=== PATIENT | male | born 2000 | race African-American/Black ===

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

== ENCOUNTER 2019-05-21 01:57 | Emergency (ER) | payer OTHER ==
[~2019-05-21] VITALS: Ht 180.3 cm; Wt 81.7 kg
[2019-05-21] MEDS ORDERED: NAPROXEN500 MG PO (02:39)
[2019-05-21] MEDS ORDERED: ROBAXIN500 MG PO (02:39)
[2019-05-21 02:54] VITALS: BP 119/90
--- NOTE | 2019-05-21 09:46 | EKG ---
[address] [address] ELECTROCARDIOGRAM REPORT Name: ALICIACLAUALEX Room #: [facility]P [facility] [id number] ������������������ Admission: 05/21/19 ������������������ Attend Phys: Discharge: 05/21/19 ������������������ Date of : [birth year] Report #: [id number] ����������������������������������������������������������������� [id number] THIS REPORT FOR: //name// [facility] ED Test Date: 2019-05-21 Test Time: 02:02:29 Pat Name: ALEX ATKINS Department: Room: Gender: Gang Miner: MALCOLM : 2000 Requested By: Mychal Bullock Order Number: [id number] MD: Abraham Wang Measurements Intervals [place] Rate: 64 P: 23 NH: 172 QRS: 2 QRSD: 90 T: 15 QT: 398 QTc: 411 Interpretive Statements Sinus rhythm Early repolarization Compared to ECG 06/04/2013 22:28:14 No significant change was found Electronically Signed On 05-21-2019 9:45:50 CDT by Abraham Wang [email or web address] ��������������������������������������������� <ELECTRONICALLY SIGNED> ���������������������������������������� By: Abraham Wang MD, [facility] ��������������������������������������������� 05/21/19 0945 [id number] Abraham Wang MD, FACC /EPI
== END 2019-05-21 02:54 | disposition home or self-care (01) ==
LOC: ER 01:57
DX: S43.401A Unspecified sprain of right shoulder joint, initial encounter (principal); F90.9 Attention-deficit hyperactivity disorder, unspecified type; X50.9XXA Other and unspecified overexertion or strenuous movements or postures, initial encounter; Y93.89 Activity, other specified; Y92.89 Other specified places as the place of occurrence of the external cause; Y99.8 Other external cause status

== ENCOUNTER 2020-04-10 21:58 | Emergency (ER) | payer OTHER ==
[~2020-04-10] VITALS: Ht 175.3 cm; Wt 104.3 kg
[~2020-04-10 21:58] MED LIST changes: +NAPROXEN500 MG PO; +ROBAXIN500 MG PO
[2020-04-10 22:10] VITALS: BP 149/97
[2020-04-10] MEDS ORDERED: NAPROSYN500 MG PO (22:28)
== END 2020-04-10 22:49 | disposition home or self-care (01) ==
LOC: ER 21:58
DX: R68.84 Jaw pain (principal); F90.9 Attention-deficit hyperactivity disorder, unspecified type

== ENCOUNTER 2021-03-19 00:10 | Emergency (ER) | payer OTHER ==
[~2021-03-19] VITALS: Ht 177.8 cm; Wt 100.7 kg
[2021-03-19] MEDS ORDERED: HYDROCODON-ACE1 EAC7 PO (01:34)
[2021-03-19] MEDS ORDERED: DOXYCYCLINE 10100 MG PO (01:34)
[2021-03-19 01:45] VITALS: BP 148/90
== END 2021-03-19 01:48 | disposition home or self-care (01) ==
LOC: ER 00:10
DX: L05.01 Pilonidal cyst with abscess (principal); F12.90 Cannabis use, unspecified, uncomplicated